=== PATIENT | male | born 1995 | race Caucasian/White ===

== ENCOUNTER 2023-09-10 05:30 | Emergency (ER) | payer OTHER ==
[~2023-09-10] VITALS: Ht 177.8 cm; Wt 75.0 kg
[2023-09-10 05:36] VITALS: TEMP 98.3
[2023-09-10] MEDS ORDERED: Ondansetron 4 MG/2 ML VIAL IV ONE (05:45)
[2023-09-10] MEDS ORDERED: NS 1,000 ML IV ONE (05:45)
[2023-09-10] MEDS ORDERED: fentaNYL 50 MCG/ML 2 ML VIAL IV ONE ×2 (05:45→06:15)
[2023-09-10 05:55] LABS: HEMATOCRIT 41.8 % (42.0-52.0); HEMOGLOBIN 14.4 g/dl (13.5-18.0); MEAN CELL VOLUME 87 fl (80.0-100.0); MEAN CORPUSCULAR HEMOGLOBIN 30 pg (27-31); MEAN CORPUSCULAR HGB CONC 34 g/dl (33.0-37.0); PLATELET COUNT 357 K/mm3 (130-400); REDCELL DISTRIBUTION WIDTH-CV 12.1 % (11.5-14.5)
[2023-09-10] MEDS ORDERED: Ketorolac 30 MG/ML VIAL IV ONE (06:00)
[2023-09-10 06:07] LABS: ALBUMIN 3.9 gm/dL (3.5-5.0); BILIRUBIN,TOTAL 0.4 mg/dL (0.2-1.2); C-REACTIVE PROTEIN 1.56 mg/dL (0.00-0.50); CALCIUM 9.5 mg/dL (8.4-10.2); CREATININE, serum 1.11 mg/dL (0.72-1.25); POTASSIUM 3.8 mmol/L (3.5-4.5)
[2023-09-10] MEDS ORDERED: Iohexol 300 - 100 ML VIAL IV ONE (06:21)
[2023-09-10 06:22] LABS: BAND 1 % (0-10); EOSINOPHIL 3 % (0-4); LYMPHOCYTE 48 % (20.0-51.0); NEUTROPHILS 43 % (42.0-75.2); PLATELET ESTIMATE NORMAL (NORMAL)
[2023-09-10] MEDS ORDERED: NS 50 ML IV SCH (06:22)
[2023-09-10] MEDS ORDERED: HYDROmorphone 0.5 MG/0.5 ML SYRINGE IV ONE (06:45)
[2023-09-10] MEDS ORDERED: NORCO 325 MG-51 TAB PO (08:09)
[2023-09-10 08:12] LABS: PH 6.5 (5.0-8.5); URINE APPEARANCE CLOUDY (CLEAR/HAZY); URINE BLOOD 2+ (NEGATIVE); URINE COLOR YELLOW (YELLOW); URINE GLUCOSE NEGATIVE (NEGATIVE); URINE KETONE TRACE (NEGATIVE); URINE NITRATE NEGATIVE (NEGATIVE); URINE PROTEIN(semi-quant) NEGATIVE (NEGATIVE); URINE UROBILINOGEN 0.2 E.U/dL (0.2-1.0)
[2023-09-10 08:16] LABS: COLLECTION METHOD CLEAN CATCH
[2023-09-10] MEDS ORDERED: ZOFRAN ODT4 MG PO (08:42)
[2023-09-10 08:50] VITALS: BP 136/83; PULSE 62
== END 2023-09-10 09:02 | disposition home or self-care (01) ==
LOC: COL.ER 05:30
PROVIDERS: Emergency Medicine
DX: N13.2 Hydronephrosis with renal and ureteral calculous obstruction (principal); R73.9 Hyperglycemia, unspecified; R61 Generalized hyperhidrosis
CPT/HCPCS: J1170; J1885; J2405; J3010; J7030; Q9967